=== PATIENT | female | born 1980 ===

== ENCOUNTER 2018-09-19 22:12 | Inpatient (IN) | payer OTHER ==
[2018-09-19] MEDS ORDERED: REGLAN IV ONE (22:35)
[2018-09-19] MEDS ORDERED: PEPCID IV ONE (22:35)
[2018-09-19] MEDS ORDERED: BICITRA PO ONE (22:35)
[2018-09-19] MEDS ORDERED: ANCEF/STERILE WATER 2 GM/20 ML 2 GM/20 ML SYRINGE IV NR (23:00)
[2018-09-19] MEDS ORDERED: PITOCin/NS 20 UNIT/1000ML DRIP 20 UNITS/1,000 ML BAG IV SCH (23:00)
[2018-09-19] MEDS ORDERED: LACTATED RINGERS 1,000 ML IV SCH (23:00)
[2018-09-19] MEDS ORDERED: SUBLIMAZE ONE (23:02)
[2018-09-19 23:04] LABS: Basophils # (Auto) 0.1 K/mm3 (0.0-0.1); Basophils % (Auto) 0.4 % (0.0-1.8); Eosinophils % (Auto) 0.1 % (0.0-4.3); Hematocrit 37.9 % (30.3-42.9); Hemoglobin 12.6 gm/dl (10.1-14.3); Lymphocytes # (Auto) 1.2 K/mm3 (1.2-5.4); Lymphocytes % (Auto) 9.4 % (13.4-35.0); Mean Corpuscular HGB Conc 33 % (30-34); Mean Corpuscular Hemoglobin 26 pg (28-32); Mean Corpuscular Volume 79 fl (79-97); Monocytes # (Auto) 0.8 K/mm3 (0.0-0.8); Monocytes % (Auto) 6.3 % (0.0-7.3); Platelet Count 208 K/mm3 (140-440); Red Blood Count 4.78 M/mm3 (3.65-5.03); Red Cell Distribution Width 15.3 % (13.2-15.2)
--- NOTE | 2018-09-19 23:05 | History and Physical Report ---
History of Present Illness Date of examination: 09/19/18 Date of admission: 09/19/18 22:47 Chief complaint: Labor History of present illness: Pt is a 38-year-old female EDC 09/27/2018; EGA 38-6/7 weeks presents to labor and delivery complaining of regular uterine contractions. She was scheduled for a repeat section with tubal ligation on 09/20/2018, but is currently in labor and dilated 6cms, so we will proceed with a repeat section with bilateral tubal ligation. She received care at [facility] and course has been unremarkable except for AMA. records are available and GBS is negative. Past History Past Medical History: no pertinent history Past Surgical History: section Family/Genetic History: diabetes, heart disease, hypertension, cancer Social history: no significant social history, - Obstetrical History Expected Date of Delivery: 09/27/18 Actual Gestation: 39 Week(s) 0 Day(s) Medications and Allergies Allergies Allergy/AdvReac Type Severity Reaction Status Date / Time No Known Allergies Allergy Verified 09/19/18 22:35 Active Meds: Active Medications Oxytocin/Sodium Chloride (Pitocin/Ns 20 Unit/1000ml Drip) 20 units in 1,000 mls @ 0 mls/hr IV TITR ROBY Lactated Ringer's (Lactated Ringers) 1,000 mls @ 2,250 mls/hr IV PREOP ROBY Stop: 09/20/18 23:27 Cefazolin Sodium (Ancef/Sterile Water 2 Gm/20 Ml) 2 gm in 20 mls @ 80 mls/hr IV PREOP NR; Protocol Stop: 09/19/18 23:14 Review of Systems All systems: negative - Physical Exam Breasts: Positive: deferred Cardiovascular: Regular rate Lungs: Positive: Clear to auscultation Abdomen: Positive: normal appearance Genitourinary (Female): Positive: normal external genitalia Vagina: Positive: normal moisture Uterus: Positive: enlarged Extremities: Positive: normal - Obstetrical FHR: category 1 Uterine Contraction Monitor Mode: External Cervical Dilatation: 6 (per nurse) Cervical Effacement Percentage: 80 (per nurse) station: -2 Uterine Contraction Pattern: Regular Uterine Tone Measurement Phase: Contraction Uterine Contraction Intensity: Moderate Results Result Diagrams: 09/19/18 22:45 All other labs normal. Assessment and Plan - Patient Problems (1) 38 weeks gestation of Onset Date: 09/19/18 Current Visit: Yes Status: Acute Plan to address problem: A: IUP @ 38 6/7 weeks in labor Previous C Section Desires permanent sterilization P: Admit to labor and delivery for repeat section with bilateral tubal ligation (2) Previous section complicating Onset Date: 09/19/18 Current Visit: Yes Status: Acute
--- NOTE | 2018-09-19 23:11 | Anesthesia Consultation ---
Anesthesia Consult and Med Hx Date of service: 09/19/18 - Airway Anesthetic Teeth Evaluation: Good ROM Head & Neck: Adequate Mental/Hyoid Distance: Adequate Mallampati Class: Class II Intubation Access Assessment: Probably Good - Pulmonary Exam CTA: Yes - Cardiac Exam Cardiac Exam: RRR - Pre-Operative Health Status ASA Pre-Surgery Classification: ASA2 Proposed Anesthetic Plan: Spinal - Pulmonary Hx Smoking: No Hx Asthma: No Hx Respiratory Symptoms: No SOB: No COPD: No Home Oxygen Therapy: No Hx Pneumonia: No Hx Sleep Apnea: No - Cardiovascular System Hx Hypertension: No Hx Coronary Artery Disease: No Hx Heart Attack/AMI: No Hx Angina: No Hx Percutaneous Transluminal Coronary Angioplasty (PTCA): No Hx Cardia Arrhythmia: No Hx Pacemaker: No Hx Internal Defibrillator: No Hx Valvular Heart Disease: No Hx Heart Murmur: No Hx Peripheral Vascular Disease: No - Central Nervous System Hx Neuromuscular Disorder: No Hx Seizures: No CVA: No Hx Back Pain: Yes Hx Psychiatric Problems: No - Gastrointestinal Hx Ulcer: No Hx Gastroesophageal Reflux Disease: Yes - Endocrine Hx Renal Disease: No Hx End Stage Renal Disease: No Hx Cirrhosis: No Hx Liver Disease: No Hx Insulin Dependent Diabetes: No Hx Non-Insulin Dependent Diabetes: No Hx Thyroid Disease: No Hx Hypothyroidism: No Hx Hyperthyroidism: No - Hematic Hx Anemia: No Hx Sickle Cell Disease: No - Other Systems Hx Alcohol Use: No Hx Substance Use: No Hx Cancer: No Hx Obesity: No
[2018-09-19] MEDS ORDERED: DILAUDID IV PRN ×2 (23:12)
[2018-09-19] MEDS ORDERED: ZOFRAN IV PRN (23:12)
--- NOTE | 2018-09-19 23:12 | Anesthesia Day of Surgery ---
Anesthesia Day of Surgery - Day of Surgery Patient Examined: Yes Patient H&P Reviewed: Yes Patient is NPO: Yes Beta Blockers: No Cardiac Clearance: No Pulmonary Clearance: No Thony's Test: N/A
--- NOTE | 2018-09-19 23:13 | Post Anesthesia Evaluation ---
- Post Anesthesia Evaluation Patient Participated: Yes Airway Patent: Yes Stable Respiratory Function: Yes Nausea/Vomiting: No Temp > 96.8F: Yes Pain Manageable: Yes Adequeate Hydration: Yes Anesthesia Complications: No Block Receding Appropriately: Yes Patient on Ventilator: No
[2018-09-19] MEDS ORDERED: SODIUM CHLORIDE FLUSH SYRINGE 10 ML IV PRN (23:45)
[2018-09-19] MEDS ORDERED: PHENYLEPHRINE/NS Syringe 1,000 MCG/10 ML IV ONE (23:57)
--- NOTE | 2018-09-20 00:26 | Operative Report ---
Operative Report Operative Report: Date of procedure: 09/19/2018 Pre-operative diagnosis: 1. Intrauterine at 38-6/7 weeks in labor 2. Previous 3. Desires permanent sterilization Post-operative diagnosis: Same Procedure name(s): Repeat low transverse section with bilateral tubal ligation Surgeon: Stanford Monsalve MD Sql Dba: None Anesthesia: Spinal anesthesia by THOMAS Valentin EBL: 400 mL's Findings: A 2979 g female Apgars 8 at 1 minute and 9 at 5 minutes. Clear amniotic fluid. Normal uterus. Normal tubes and ovaries bilaterally. Procedure: After the patient was prepped and draped in usual sterile fashion, and after satisfactory level of epidural anesthesia was obtained, the skin knife was used to make a transverse skin incision through the previous skin scar. The incision was excised down to layer of the fascia, which was nicked in the midline and extended laterally using the Bovie cautery. The rectus muscles were dissected off the rectus fascia both superiorly and inferiorly. The rectus bellies in the midline, and the peritoneum was entered under direct visualization. The peritoneal incision was extended superiorly and inferiorly. A bladder flap was created and the bladder blade was then placed. The uterus was scored in a curvilinear linear fashion, entered in the midline revealing clear amniotic fluid. The infant's head was delivered onto the surgical field, and the oropharynx and nasopharynx were bulb suctioned. The rest of the 's body was delivered, cord was doubly clamped and cut and the was handed to the waiting respiratory team. Cord blood was then obtained. The placenta was manually removed from the uterus, and the uterus removed from its normal anatomical position. After gentle uterine lavage, the incision was inspected and found to be without extensions. It was then closed in 2 layers using 0 Vicryl suture in a running interlocking fashion, the second layer imbricating the first. After good hemostasis was achieved, copious amounts or irrigation was performed, and the gutters were suctioned free of blood and blood clots. Attention was then turned to the tubal ligation. The right fallopian tube was grasped using the Keller after identifying the fimbriated end of the right tube, the Filshie clip was applied to the proximal portion of the tube. The left fallopian tube was grasped using Cinthia and after then identifying the fimbriated end of the left tube, the Filshie clip was applied to the proximal portion of the tube. The Tisseel sealant was sprayed across the uterine incision. The uterus was then returned to its normal anatomical position, and after excellent hemostasis assured, the peritoneum was re-approximated using 3-0 Vicryl suture in a running interlocking fashion, and then the rectus muscles were re-approximated using 3-0 Vicryl suture in a [id number] configuration. The fascia was then re-approximated using 0 Vicryl suture in running interlocking fashion. The subcutaneous layer was made hemostatic using Bovie cautery, the Tisseel sealant was sprayed across the fascial incision and the skin edges re-approximated using 4-0 Vicryl suture in a sub-cuticular fashion. Patient tolerated the procedure well was transported to recovery in stable condition.
[2018-09-20] MEDS ORDERED: NORCO 5/325 PO PRN (00:27)
[2018-09-20] MEDS ORDERED: LANSINOH TP PRN (00:27)
[2018-09-20] MEDS ORDERED: TUCKS PAD TP PRN (00:27)
[2018-09-20] MEDS ORDERED: TYLENOL PO PRN (00:27)
[2018-09-20] MEDS ORDERED: MYLICON PO PRN (00:27)
[2018-09-20] MEDS ORDERED: NARCAN 0.4 MG/1 ML IV PRN (00:27)
[2018-09-20] MEDS ORDERED: SENOKOT PO PRN (00:27)
[2018-09-20] MEDS ORDERED: TORADOL IV PRN (00:27)
[2018-09-20] MEDS ORDERED: VERSED ONE (00:28)
[2018-09-20] MEDS ORDERED: DILAUDID ONE (00:28)
[2018-09-20] MEDS ORDERED: TORADOL ONE (00:29)
[2018-09-20] MEDS ORDERED: BENADRYL IV ONE (00:53)
[2018-09-20] MEDS ORDERED: SODIUM CHLORIDE FLUSH SYRINGE 10 ML IV PRN (01:00)
[2018-09-20] MEDS ORDERED: D5LR 1,000 ML IV SCH (01:00)
[2018-09-20] MEDS ORDERED: PITOCin/NS 20 UNIT/1000ML DRIP 20 UNITS/1,000 ML BAG IV SCH (01:00)
[2018-09-20] MEDS ORDERED: BENADRYL ONE (01:02)
[2018-09-20] MEDS: ANCEF/NS 1 GM/50 ML 1 GM/50 ML BAG IV SCH ×2 (07:46→15:57)
[2018-09-20] MEDS: PERCOCET 5/325 PO PRN ×2 (10:09→15:56)
[2018-09-20] MEDS: PRENATAL VITAMIN PO SCH (10:09)
[2018-09-20] MEDS: IBUPROFEN PO PRN ×2 (10:09→15:57)
[2018-09-20] MEDS: FEOSOL PO SCH (10:09)
[2018-09-20 13:04] LABS: Hematocrit 31.6 % (30.3-42.9); Hemoglobin 10.6 gm/dl (10.1-14.3)
[2018-09-20] MEDS: MILK OF MAGNESIA PO PRN (21:25)
[2018-09-21] MEDS ORDERED: M-M-R II VACCINE SUB-Q ONE (00:29)
[2018-09-21] MEDS: PERCOCET 5/325 PO PRN ×3 (00:43→19:55)
[2018-09-21] MEDS: IBUPROFEN PO PRN ×2 (02:15→12:30)
[2018-09-21] MEDS ORDERED: BOOSTRIX IM ONE (06:00)
--- NOTE | 2018-09-21 12:24 | Progress Note ---
Assessment and Plan A: day 1 S/P repeat LTCS with BTL. Anemia secondary to and blood loss. P: Encouraged ambulation. Continue iron supplementation. Subjective - Subjective Date of service: 09/21/18 Principal diagnosis: /postop day 1 S/P repeat LTCS with BTL Interval history: /postop day 1 S/P repeat LTCS with BTL. Doing well. Patient reports small amount of lochia. Voiding without difficulty; ambulating well. Tolerating a regular diet without nausea or vomiting. Passing gas. Denies headache, chest pain, shortness of breath, cough, heavy bleeding, or leg pain. Patient reports: appetite normal, voiding normally, pain well controlled, flatus, ambulating normally, no dizzy ambulation, no bowel movement, no nauseated : doing well Objective - Vital Signs Latest vital signs: Vital Signs Temp Pulse Resp BP BP Pulse Ox 09/21/18 07:08 98.1 F 86 18 96/60 09/21/18 01:46 98.7 F 96 H 18 109/66 95 09/20/18 21:15 98.5 F 82 18 109/71 97 09/20/18 15:39 98.8 F 78 18 122/67 98 Intake and Output 09/20/18 09/21/18 09/21/18 23:59 07:59 15:59 Intake Total 1080 600 Output Total 1300 Balance -220 600 Intake: Oral 480 480 Intake, Free Water 600 120 Output: Urine 1300 Void 1300 Other: Total, Intake Amount 480 480 Total, Output Amount 600 # Voids Void 1 1 - Exam Cardiovascular: Present: Regular rate, Normal S1, Normal S2, No murmurs Lungs: Present: Clear to auscultation Abdomen: Present: normal appearance, soft. Absent: distention, tenderness, guarding, rigidity Uterus: Present: normal, firm, fundal height below umbilicus. Absent: bogginess, tenderness Extremities: Present: normal. Absent: tenderness, edema Incision: Present: normal, dry, intact
[2018-09-21] MEDS: PRENATAL VITAMIN PO SCH (12:30)
[2018-09-21] MEDS: FEOSOL PO SCH (12:30)
[2018-09-22] MEDS: IBUPROFEN PO PRN ×4 (00:30→23:38)
[2018-09-22] MEDS: PERCOCET 5/325 PO PRN (11:11)
[2018-09-22] MEDS: PRENATAL VITAMIN PO SCH (11:12)
[2018-09-22] MEDS: MILK OF MAGNESIA PO PRN ×2 (11:13→21:53)
[2018-09-22] MEDS: FEOSOL PO SCH (11:13)
--- NOTE | 2018-09-22 12:19 | Progress Note ---
Assessment and Plan A: day 2 S/P LTCS with BTL. Anemia secondary to and blood loss. P: Continue iron supplementation. Continue ambulation. Subjective - Subjective Date of service: 09/22/18 Principal diagnosis: /postop day 2 S/P repeat LTCS with BTL Interval history: /postop day 2 S/P repeat LTCS with BTL. Doing well. Patient reports small amount of lochia. Voiding without difficulty; ambulating well. Tolerating a regular diet without nausea or vomiting. Passing gas. Denies headache, chest pain, dizziness, shortness of breath, cough, nausea or vomiting, abdominal pain, heavy bleeding, or leg pain. Patient reports: appetite normal, voiding normally, pain well controlled, flatus, ambulating normally, no dizzy ambulation, no nauseated [place]: doing well Objective - Vital Signs Latest vital signs: Vital Signs Temp Pulse Resp BP BP Pulse Ox 09/22/18 07:43 103/61 09/22/18 07:42 98.1 F 87 18 103/61 09/22/18 06:07 18 09/22/18 01:30 18 09/22/18 01:05 98.9 F 89 18 111/67 97 09/22/18 00:30 18 09/21/18 20:55 16 09/21/18 19:55 18 09/21/18 16:44 98.0 F 89 18 101/56 Intake and Output 09/21/18 09/22/18 09/22/18 23:59 07:59 15:59 Intake Total 480 840 Balance 480 840 Intake: Oral 480 480 Intake, Free Water 360 Other: Total, Intake Amount 480 480 # Voids Void 2 2 - Exam Cardiovascular: Present: Regular rate, Normal S1, Normal S2, No murmurs Lungs: Present: Clear to auscultation Abdomen: Present: normal appearance, soft, normal bowel sounds. Absent: distention, tenderness, guarding, rigidity Uterus: Present: normal, firm, fundal height below umbilicus. Absent: bogginess, tenderness Extremities: Present: normal. Absent: tenderness, edema Incision: Present: normal, dry, intact
[2018-09-23] MEDS: IBUPROFEN PO PRN ×2 (05:23→11:11)
--- NOTE | 2018-09-23 10:07 | Progress Note ---
Assessment and Plan - Patient Problems (1) S/P repeat low transverse Current Visit: Yes Status: Acute Plan to address problem: POD 3 - stable Continue routine postop orders Ambulation encouraged, as tolerated Discharge to home today Follow-up at [facility] as needed or in 1 week for incision check (2) S/P tubal ligation Current Visit: Yes Status: Acute Subjective - Subjective Date of service: 09/23/18 Principal diagnosis: POD #3; s/p Repeat LTCS with BTL Interval history: see H&P, Operative Report and PP/BE[facility] PATROL LIEUTENANT Progress Notes Patient reports: appetite normal, voiding normally, pain well controlled, flatus, ambulating normally, no dizzy ambulation, no bowel movement [place]: doing well, other (breast and bottle feeding) Objective - Vital Signs Latest vital signs: Vital Signs Temp Pulse Resp BP Pulse Ox 09/23/18 07:03 98.1 F 90 18 116/68 09/23/18 06:23 18 09/23/18 05:23 18 09/23/18 00:38 18 09/22/18 23:38 18 09/22/18 23:14 98.2 F 85 16 106/69 95 09/22/18 16:27 98 F 88 18 103/61 Intake and Output 09/22/18 09/23/18 09/23/18 23:59 07:59 15:59 Intake Total 1080 600 Balance 1080 600 Intake: Oral 1080 600 Other: Total, Intake Amount 360 480 # Voids Indwelling Catheter 1 Void 1 1 - Exam Cardiovascular: Present: Regular rate Lungs: Present: Clear to auscultation, Normal air movement Abdomen: Present: normal appearance, soft Vulva: both: normal Uterus: Present: normal, firm, fundal height below umbilicus Extremities: Present: normal Incision: Present: normal, dry, intact, other (steri strips in place) Comments: scant lochia
--- NOTE | 2018-09-23 10:10 | Discharge Summary ---
Providers - Providers Date of Admission: 09/19/18 22:47 Date of discharge: 09/23/18 Attending physician: WILLIAM BURROUGHS MD Primary care physician: WILLIAM BURROUGHS MD Hospitalization Reason for admission: active labor, IUP at term Delivery: Procedure: bilateral tubal ligation, repeat low transverse Episiotomy: none Laceration: none Incision: normal, dry, intact, other (steri strips in place) Other procedures: none complications: none Discharge diagnosis: IUP at term delivered baby: female Hospital course: Uncomplicated Condition at discharge: Stable Disposition: DC-01 TO HOME OR SELFCARE - Discharge Diagnoses (1) S/P repeat low transverse Status: Acute (2) S/P tubal ligation Status: Acute Plan - Discharge Medications Prescriptions: Ferrous Sulfate [Feosol 325 MG tab] 325 mg PO BID #60 tablet Ibuprofen [Motrin] 800 mg PO Q8HR PRN #30 tablet PRN Reason: Pain, Mild (1-3) HYDROcodone/APAP 5-325 [[place] 5/325] 1 each PO Q6HR PRN #30 tablet PRN Reason: Pain Vit-Fe Fumar-FA [ Vitamin] 1 tab PO QDAY #30 tablet - Provider Discharge Summary Activity: routine, no sex for 6 weeks, no heavy lifting 4 weeks, no strenuous exercise Diet: routine Instructions: routine Additional instructions: [] Smoking cessation referral if applicable(refer to patient education folder for contact #) [] Refer to [facility]'s [facility] Booklet Call your doctor immediately for: * Fever > 100.5 * Heavy vaginal bleeding ( >1 pad per hour) * Severe persistent headache * Shortness of breath * Reddened, hot, painful area to leg or breast * Drainage or odor from incision. * Keep incision clean and dry at all times and follow doctor's instructions regarding bathing/showering - Follow up plan Follow up: WILLIAM BURROUGHS MD [Primary Care Provider] - 7 Days (Follow up at [facility] as needed or in 1 week for incision check) Forms: [facility] Discharge Summary, Discharge Signature Page
[2018-09-23] MEDS: PRENATAL VITAMIN PO SCH (11:11)
[2018-09-23] MEDS: FEOSOL PO SCH (11:11)
[2018-09-23] MEDS: PERCOCET 5/325 PO PRN (11:11)
[2018-09-23 12:18] VITALS: BP 116/64
== END 2018-09-23 12:45 | disposition home or self-care (01) | DRG 785 ==
LOC: TRG 22:12 → LD 22:47 → TRG 22:47 → OB 09-20 02:52
PROVIDERS: ADMIT Obstetrics & Gynecology; ATTEND Obstetrics & Gynecology
PROC: 10D00Z1 Extraction of Products of Conception, Low, Open Approach (ICD-10-PCS; principal; 2018-09-19)
PROC: 0UL70CZ Occlusion of Bilateral Fallopian Tubes with Extraluminal Device, Open Approach (ICD-10-PCS; 2018-09-19)
PROC: 3E0234Z Introduction of Serum, Toxoid and Vaccine into Muscle, Percutaneous Approach (ICD-10-PCS; 2018-09-21)
DX: O34.211 Maternal care for low transverse scar from previous cesarean delivery (principal); O99.62 Diseases of the digestive system complicating childbirth; K21.9 Gastro-esophageal reflux disease without esophagitis; O99.02 Anemia complicating childbirth; D64.9 Anemia, unspecified; Z82.49 Family history of ischemic heart disease and other diseases of the circulatory system; Z83.3 Family history of diabetes mellitus; Z3A.38 38 weeks gestation of pregnancy; Z37.0 Single live birth; Z80.9 Family history of malignant neoplasm, unspecified; Z23 Encounter for immunization
CPT/HCPCS: 36415; 85014; 85018; 85025; 86592; 86850; 86900; 86901; 90471; 90715; G0378; A6250; J0690; J1170; J1200; J1885; J2250; J2370; J2590; J2765; J3010; J7120; J7121